=== PATIENT | female | born 1960 ===

== ENCOUNTER 2022-04-11 05:13 | Day surgery (SDC) | payer OTHER ==
[~2022-04-11 05:13] MED LIST: VASOTEC5 MG
[2022-04-11] MEDS ORDERED: MACROBID 100 M100 MG PO (10:47)
[2022-04-11] MEDS ORDERED: ULTRACET PO (10:47)
== END 2022-04-11 13:15 | disposition home or self-care (01) ==
LOC: CIR.AMB 05:13
PROVIDERS: ATTEND Obstetrics & Gynecology Gynecology
DX: N81.5 Vaginal enterocele (principal); N81.6 Rectocele; N81.11 Cystocele, midline; I10 Essential (primary) hypertension; Z20.822 Contact with and (suspected) exposure to COVID-19